=== PATIENT | female | born 1945 | race Caucasian/White ===

== ENCOUNTER 2019-06-20 08:22 | Inpatient (IN) ==
[2019-06-20] MEDS ORDERED: TYLENOL PO ONE (09:33)
[2019-06-20] MEDS ORDERED: NS 500 ML IV ONE (09:33)
[2019-06-20 10:02] LABS: ALLEN TEST NO; BE 2.9 mmoll (-3.0-3.0); BLOOD TYPE ARTERIAL; HCO3-(ACT) 27.2 mmoll (20.0-26.0); METHB 1.1 % (0.0-1.5); O2(CT) 17.3 mL/dL (15.0-23.0); O2HB 96.4 % (95.0-99.0); PCO2(98.6) 27 mmHg (35-45); PO2(98.6) 120 mmHg (60-100); SAMPLE BLOOD; SAO2 98.8 % (95.0-100.0); THB 12.6 g/dL (11.5-17.4)
[2019-06-20 10:03] LABS: MODALITY ROOM AIR; pH(98.6) 7.56 (7.35-7.45)
--- NOTE | 2019-06-20 10:15 | Diag Imaging Result Doc PS360 ---
EXAM: CT HEAD/C-SPINE W/O CONTRAST 06/20/2019 HISTORY: head injury/pain TECHNIQUE: This exam was performed using automated exposure control, adjustment of mA or kV according to patient size, and/or use of iterative reconstruction technique. COMMENT: There is no evidence of mass effect, bleed, or abnormal extra-axial fluid collection. The visualized paranasal sinuses are clear. There is hyperostosis frontalis interna. There are no acute calvarial abnormalities. Cervical spine: There is severe hypertrophic facet disease at C2-3, C3-4, C4-5 on the right and to a lesser extent at C2-3 and C3-4 on the left. There are large posterior osteophytes at C5-6 and C6-7 with disc space narrowing and vacuum phenomenon. No fracture or subluxation is present. The facets are aligned. IMPRESSION: No evidence of acute intracranial or cervical spine abnormality. Degenerative disc and facet changes in the cervical spine as described. Electronically signed by Prabhjot De La Rosa 06/20/2019 10:13 AM
--- NOTE | 2019-06-20 10:21 | Diag Imaging Result Doc PS360 ---
EXAM: XRAY PELVIS W/HIP 2-3VW RT HISTORY: fall TECHNIQUE: Three views COMPARISON: None. FINDINGS: No fracture. No dislocation. IMPRESSION: No acute bony injury. Electronically signed by Arron Crockett 06/20/2019 10:19 AM
--- NOTE | 2019-06-20 10:21 | Diag Imaging Result Doc PS360 ---
EXAM: CHEST-PORTABLE HISTORY: ams, falling TECHNIQUE: Single view COMPARISON: None. FINDINGS: The lungs are well expanded. No contusion. No pneumothorax. There is a left-sided granuloma. The heart is not enlarged. The vessels are not distended. There are no infiltrates. No effusion identified. IMPRESSION: Negative exam. Electronically signed by Arron Crockett 06/20/2019 10:18 AM
--- NOTE | 2019-06-20 10:23 | EKG Report ---
Test Performed on : 06/20/2019 09:44:06 AM Test Reason : AMS, falling Blood Pressure : / mmHG Vent. Rate : 077 BPM Atrial Rate : 077 BPM P-R Int : 140 ms QRS Dur : 078 ms QT Int : 422 ms P-R-T Axes : -13 008 027 degrees QTc Int : 477 ms Normal sinus rhythm. Normal ECG No previous ECGs available Unconfirmed Result
[2019-06-20 10:55] LABS: BASO# 0.02 X1000 (0.0-0.2); BASO% 0.2 % (0.0-0.8); EOS# 0.04 X1000 (0.0-0.7); EOS% 0.3 % (0.0-10.0); HEMATOCRIT 35.8 % (37.0-47.0); HEMOGLOBIN 12.3 g/dL (12.0-16.0); IMM GRAN# 0.02 X1000 (0.0-0.04); IMM GRAN% 0.2 % (0.0-0.5); LYMPH# 2.39 X1000 (1.2-3.4); LYMPH% 19.8 % (20.5-51.1); MCH 33.1 PG (27-31); MCHC 34.4 g/dL (33-37); MCV 96.2 FL (81-99); MONO# 1.12 X1000 (0.11-0.59); MONO% 9.3 % (1.7-9.3); MPV 11.8 FL (7.4-10.4); NEUT# 8.46 X1000 (1.4-6.5); NEUT% 70.2 % (42.2-75.2); PLT 270 X1000 (130-400); RBC 3.72 XMIL (4.2-5.4); RDW 12.6 % (11.5-14.5); WBC 12.05 X1000 (4.8-10.8)
[2019-06-20 11:06] LABS: INR 1.06; PTT 27.3 Seconds (22.3-41.8)
[2019-06-20 11:47] LABS: ALB/GLOB RATIO 2.3; ALBUMIN 4.2 g/dL (3.5-5.0); CALCIUM 10.1 mg/dL (8.8-10.2); CREATININE 1.8 mg/dL (0.5-0.9); MAGNESIUM 2.3 mg/dL (1.5-2.7); POTASSIUM 4.4 mmol/L (3.5-5.1); TOTAL BILIRUBIN 1.23 mg/dL (0.20-1.00)
[2019-06-20 14:05] LABS: URINE SOURCE CATH
[2019-06-20 14:10] LABS: BILIRUBIN URINE NEGATIVE (NEGATIVE); BLOOD URINE NEGATIVE (NEGATIVE); COLOR YELLOW; GLUCOSE URINE NEGATIVE (NEGATIVE); KETONE URINE NEGATIVE (NEGATIVE); LEUKOCYTES URINE NEGATIVE (NEGATIVE); NITRITE URINE NEGATIVE (NEGATIVE); PH URINE 6.5; PROTEIN URINE NEGATIVE (NEGATIVE); SP GRAVITY URINE 1.016; TURBIDITY URINE CLEAR (CLEAR); UROBILINOGEN URINE NORMAL (NORMAL)
[2019-06-20 14:12] LABS: UR EPITHELIAL CELLS <10 /HPF (<10); URINE BACTERIA 4+ /HPF; URINE RBC <10 /HPF (<10); URINE WBC <10 /HPF (<10)
[2019-06-20 14:19] LABS: UR AMPHETAMINES QUAL NONE DETECTED (NONE DETECT); UR BARBITUATES QUAL NONE DETECTED (NONE DETECT); UR BENZODIAZEPIN QUAL NONE DETECTED (NONE DETECT); UR CANNABINOIDS QUAL NONE DETECTED (NONE DETECT); UR COCAINE QUAL NONE DETECTED (NONE DETECT); UR METHADONE QUAL NONE DETECTED (NONE DETECT); UR OPIATES QUAL NONE DETECTED (NONE DETECT); UR OXYCODONE QUAL NONE DETECTED (NONE DETECT); UR PCP QUAL NONE DETECTED (NONE DETECT)
[2019-06-20] MEDS ORDERED: ROCEPHIN 1 GM in NS 50 ML IV ONE (14:38)
--- NOTE | 2019-06-20 14:59 | PROVIDER DOCUMENTATION ---
This chart was entered by Radha Plaza Scribe, acting as scribe for Santos Chapa MD. HPI-Neurological Disorder - General Chief Complaint: Fall Stated Complaint: fall Time Seen by Provider: 06/20/19 09:04 Source: patient, EMS Allergies/Adverse Reactions: Patient Allergies Allergy/AdvReac Type Severity Reaction Status Date / Time bacitracin [From Polysporin] Allergy Unknown Verified 06/20/19 10:07 codeine Allergy Unknown Verified 06/20/19 10:07 Latex, Natural Rubber Allergy Unknown Verified 06/20/19 10:07 metformin Allergy Unknown Verified 06/20/19 10:07 pioglitazone [From Actos] Allergy Unknown Verified 06/20/19 10:07 polymyxin B [From Polysporin] Allergy Unknown Verified 06/20/19 10:07 - History of Present Illness-Neuro Nature of Presenting Problem: 73 yof presents to the ed via ems post fall at approximately 0515 this am. pt was in the floor about 2 hrs prior to getting ems called. when ems aos pt had noted FSBG 41 and was given glucose and recheck of FSBG was 71. pt sts she has recently had medications changes in the last 2 weeks and has noted generalized weakness and falls since change. pt denies LOC with todays fall and on exam pt does have occipital head tenderness, rt hip tenderness and ecchymosis seen on rt hip and bilateral knees possible from previous falls. pt is a/o x3 and in no obvious distress on exam Headache Location: reports: occipital Severity: reports: moderate Onset/Duration: reports: this morning (0515am) Timing: reports: still present Context: reports: head injury, falling Character of Altered Mental Status: reports: unchanged from baseline Any recent trauma/injury?: reports: minor, to head Character of Deficits: reports: new weakness, decreased ability to walk (falling freq). denies: impaired speech New weakness or altered sensation location:: reports: general (diffuse) Cognitive Baseline: alert, oriented x3 Gait Baseline: walks without assistance Associated Symptoms: reports: trouble walking (freq falls in last 2 weeks), weakness. denies: headache, chest pain, neck/back pain, loss of consciousness, nausea, seizures, slurred speech Similar Symptoms Previously?: Yes Recently seen or treated by another doctor?: Yes (PMD in last 2 weeks for med changes) Review of Systems - Adult - REVIEW OF SYSTEMS - ADULT Constitutional: denies: chills, fever Eyes: denies: blurred vision, double vision Ears, Nose, Mouth & Throat: reports: no symptoms reported Cardiovascular: denies: chest pain, syncope Respiratory: denies: cough, shortness of breath, wheezing Gastrointestinal: denies: diarrhea, nausea, vomiting Genitourinary: reports: no symptoms reported Musculoskeletal: reports: see HPI, joint pain, muscle aches. denies: back pain, neck pain Integumentary: reports: no symptoms reported Neurological: reports: see HPI, loss of balance, tremors. denies: dizziness/vertigo, headache/migraines, slurred speech, syncope Psychiatric: reports: no symptoms reported Endocrine: reports: no symptoms reported Hematologic/Lymphatic: reports: no symptoms reported Allergic/Immunologic: reports: no symptoms reported All Other Systems: Reviewed and Negative Past History - Adult - PAST MEDICAL HISTORY-ADULT Review of Records: reports: Old Records Reviewed, Nursing Assessment Review, Medications Reviewed, Social history reviewed & non-contributory. Major Childhood Illnesses: reports: denies history Cardiovascular: reports: A-Fib, HTN Respiratory: reports: denies history Gastrointestinal: reports: denies history Obstetrical/Gynecological: reports: denies history Genitourinary: reports: denies history Musculoskeletal: reports: denies history Neurological: reports: denies history Psychiatric: reports: denies history Endocrine/Immune: reports: Diabetes Diabetes Type: Type 2 Other Conditions: reports: denies history - PRIOR SURGERIES/PROCEDURES Surgical/Procedure History: reports: reviewed, not pertinent - IMMUNIZATION STATUS Childhood Immunizations: See Nurse Assessment Flu Vaccine: See Nurse Assessment - FAMILY HISTORY Family History: reviewed, not pertinent - SOCIAL HISTORY Smoking: denies Substance Use: denies Living Situation: family Physical Exam- Neurological - Physical Exam-Neuro Initial Vital Signs Reviewed: Yes General Appearance: appears well, alert, no apparent distress Eye Exam: bilateral eye: normal inspection, PERRL, EOMI HENMT: moist mucous membranes Head Injury: tenderness (to occipital head). 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 negative: abrasion(s), laceration(s) Psych/Mental Status: normal mood/affect, normal thought content, normal thought process, oriented x 3 - Glascow Coma Scale Best Eye Response: (4) open spontaneously Best Verbal Response: (5) oriented Best Motor Response: (6) obeys commands Total Glascow Score: 15 Progress - PLAN OF CARE/RESULTS Progress/Plan/Lab Results: Vital Signs - 8 hr 06/20/19 08:38 06/20/19 13:41 Temperature 98.1 F Pulse Rate 77 71 Respiratory Rate 18 22 Blood Pressure 140/53 129/48 O2 Sat by Pulse Oximetry 99 95 Laboratory Results - last 24 hr 06/20/19 06/20/19 06/20/19 08:28 09:16 09:55 WBC RBC Hgb Hct MCV MCH MCHC RDW Std Deviation Plt Count MPV Immature Gran % (Auto) Neut % (Auto) Lymph % (Auto) [place] % (Auto) Eos % (Auto) Baso % (Auto) Immature Gran # (Auto) Neut # (Auto) Lymph # (Auto) [place] # (Auto) Eos # (Auto) Baso # (Auto) PT INR PTT (Actin FS) Specimen Type ARTERIAL Sample Site R BRACHIAL pH 7.56 H* pCO2 27 L pO2 120 H HCO3 27.2 H Base Excess 2.9 Oxyhemoglobin 96.4 ABG O2 Sat (Calculated) 17.3 ABG O2 Saturation 98.8 ABG Carboxyhemoglobin 1.20 ABG Methemoglobin 1.1 Telly Test NO A-a O2 Difference -4.0 Total Hemoglobin 12.6 Lactate 1.60 Liter Flow 0.0 Blood Gas Modality ROOM AIR FiO2 % 21.0 Sodium Potassium Chloride Carbon Dioxide Anion Gap BUN Creatinine Estimated GFR/1.73 m2 BUN/Creatinine Ratio Glucose POC Glucose 41 L 72 D Calculated Osmolality Calcium Magnesium Total Bilirubin AST ALT Alkaline Phosphatase Creatine Kinase Troponin T High Sens [id number]-Uvjgecyaaaq Pept Total Protein Albumin Globulin Albumin/Globulin Ratio Plasma Lactate Urine Source Urine Color Urine Turbidity Urine pH Ur Specific [place] Urine Protein Ur Glucose (Stick) Ur Ketones (Stick) Urine Blood Urine Nitrite Urine Bilirubin Urobilinogen Dipstick Urine Leukocytes Urine WBC (Auto) Urine RBC (Auto) U Epithel Cells (Auto) Urine Bacteria (Auto) Urine Opiates Screen Ur Oxycodone Screen Ur Methadone, Qual Ur Barbiturates Screen Ur Phencyclidine Scrn Ur Amphetamines Screen U Benzodiazepines Scrn Urine Cocaine Screen U Cannabinoids Screen Plasma/Serum Ethyl Alc Acetone Level 06/20/19 06/20/19 06/20/19 10:21 10:22 10:22 WBC RBC Hgb Hct MCV MCH MCHC RDW Std Deviation Plt Count MPV Immature Gran % (Auto) Neut % (Auto) Lymph % (Auto) [place] % (Auto) Eos % (Auto) Baso % (Auto) Immature Gran # (Auto) Neut # (Auto) Lymph # (Auto) [place] # (Auto) Eos # (Auto) Baso # (Auto) PT INR PTT (Actin FS) Specimen Type Sample Site pH pCO2 pO2 HCO3 Base Excess Oxyhemoglobin ABG O2 Sat (Calculated) ABG O2 Saturation ABG Carboxyhemoglobin ABG Methemoglobin Telly Test A-a O2 Difference Total Hemoglobin Lactate Liter Flow Blood Gas Modality FiO2 % Sodium 139 Potassium 4.4 Chloride 103 Carbon Dioxide 20 L Anion Gap 16 BUN 36 H Creatinine 1.8 H Estimated GFR/1.73 m2 27 BUN/Creatinine Ratio 20 Glucose 83 POC Glucose Calculated Osmolality 285 Calcium 10.1 Magnesium 2.3 Total Bilirubin 1.23 H AST 37 H ALT 30 Alkaline Phosphatase 51 Creatine Kinase 160 Troponin T High Sens Uzo-Y-Mbtbsfveacn Pept 295 Total Protein 6.0 L Albumin 4.2 Globulin 1.8 Albumin/Globulin Ratio 2.3 Plasma Lactate 2.9 H Urine Source Urine Color Urine Turbidity Urine pH Ur Specific [place] Urine Protein Ur Glucose (Stick) Ur Ketones (Stick) Urine Blood Urine Nitrite Urine Bilirubin Urobilinogen Dipstick Urine Leukocytes Urine WBC (Auto) Urine RBC (Auto) U Epithel Cells (Auto) Urine Bacteria (Auto) Urine Opiates Screen Ur Oxycodone Screen Ur Methadone, Qual Ur Barbiturates Screen Ur Phencyclidine Scrn Ur Amphetamines Screen U Benzodiazepines Scrn Urine Cocaine Screen U Cannabinoids Screen Plasma/Serum Ethyl Alc Acetone Level 06/20/19 06/20/19 06/20/19 10:22 10:22 10:22 WBC 12.05 H RBC 3.72 L Hgb 12.3 Hct 35.8 L MCV 96.2 MCH 33.1 H MCHC 34.4 RDW Std Deviation 12.6 Plt Count 270 MPV 11.8 H Immature Gran % (Auto) 0.2 Neut % (Auto) 70.2 Lymph % (Auto) 19.8 L [place] % (Auto) 9.3 Eos % (Auto) 0.3 Baso % (Auto) 0.2 Immature Gran # (Auto) 0.02 Neut # (Auto) 8.46 H Lymph # (Auto) 2.39 [place] # (Auto) 1.12 H Eos # (Auto) 0.04 Baso # (Auto) 0.02 PT INR PTT (Actin FS) Specimen Type Sample Site pH pCO2 pO2 HCO3 Base Excess Oxyhemoglobin ABG O2 Sat (Calculated) ABG O2 Saturation ABG Carboxyhemoglobin ABG Methemoglobin Telly Test A-a O2 Difference Total Hemoglobin Lactate Liter Flow Blood Gas Modality FiO2 % Sodium Potassium Chloride Carbon Dioxide Anion Gap BUN Creatinine Estimated GFR/1.73 m2 BUN/Creatinine Ratio Glucose POC Glucose Calculated Osmolality Calcium Magnesium Total Bilirubin AST ALT Alkaline Phosphatase Creatine Kinase Troponin T High Sens 25 H Rds-N-Bngetgvliwf Pept Total Protein Albumin Globulin Albumin/Globulin Ratio Plasma Lactate Urine Source Urine Color Urine Turbidity Urine pH Ur Specific [place] Urine Protein Ur Glucose (Stick) Ur Ketones (Stick) Urine Blood Urine Nitrite Urine Bilirubin Urobilinogen Dipstick Urine Leukocytes Urine WBC (Auto) Urine RBC (Auto) U Epithel Cells (Auto) Urine Bacteria (Auto) Urine Opiates Screen Ur Oxycodone Screen Ur Methadone, Qual Ur Barbiturates Screen Ur Phencyclidine Scrn Ur Amphetamines Screen U Benzodiazepines Scrn Urine Cocaine Screen U Cannabinoids Screen Plasma/Serum Ethyl Alc Acetone Level 06/20/19 06/20/19 06/20/19 10:22 10:22 11:26 WBC RBC Hgb Hct MCV MCH MCHC RDW Std Deviation Plt Count MPV Immature Gran % (Auto) Neut % (Auto) Lymph % (Auto) [place] % (Auto) Eos % (Auto) Baso % (Auto) Immature Gran # (Auto) Neut # (Auto) Lymph # (Auto) [place] # (Auto) Eos # (Auto) Baso # (Auto) PT 14.0 INR 1.06 PTT (Actin FS) 27.3 Specimen Type Sample Site pH pCO2 pO2 HCO3 Base Excess Oxyhemoglobin ABG O2 Sat (Calculated) ABG O2 Saturation ABG Carboxyhemoglobin ABG Methemoglobin Telly Test A-a O2 Difference Total Hemoglobin Lactate Liter Flow Blood Gas Modality FiO2 % Sodium Potassium Chloride Carbon Dioxide Anion Gap BUN Creatinine Estimated GFR/1.73 m2 BUN/Creatinine Ratio Glucose POC Glucose 157 H D Calculated Osmolality Calcium Magnesium Total Bilirubin AST ALT Alkaline Phosphatase Creatine Kinase Troponin T High Sens Eux-P-Gpofvivjtli Pept Total Protein Albumin Globulin Albumin/Globulin Ratio Plasma Lactate Urine Source Urine Color Urine Turbidity Urine pH Ur Specific [place] Urine Protein Ur Glucose (Stick) Ur Ketones (Stick) Urine Blood Urine Nitrite Urine Bilirubin Urobilinogen Dipstick Urine Leukocytes Urine WBC (Auto) Urine RBC (Auto) U Epithel Cells (Auto) Urine Bacteria (Auto) Urine Opiates Screen Ur Oxycodone Screen Ur Methadone, Qual Ur Barbiturates Screen Ur Phencyclidine Scrn Ur Amphetamines Screen U Benzodiazepines Scrn Urine Cocaine Screen U Cannabinoids Screen Plasma/Serum Ethyl Alc Acetone Level NEGATIVE 06/20/19 06/20/19 13:58 13:58 WBC RBC Hgb Hct MCV MCH MCHC RDW Std Deviation Plt Count MPV Immature Gran % (Auto) Neut % (Auto) Lymph % (Auto) [place] % (Auto) Eos % (Auto) Baso % (Auto) Immature Gran # (Auto) Neut # (Auto) Lymph # (Auto) [place] # (Auto) Eos # (Auto) Baso # (Auto) PT INR PTT (Actin FS) Specimen Type Sample Site pH pCO2 pO2 HCO3 Base Excess Oxyhemoglobin ABG O2 Sat (Calculated) ABG O2 Saturation ABG Carboxyhemoglobin ABG Methemoglobin Telly Test A-a O2 Difference Total Hemoglobin Lactate Liter Flow Blood Gas Modality FiO2 % Sodium Potassium Chloride Carbon Dioxide Anion Gap BUN Creatinine Estimated GFR/1.73 m2 BUN/Creatinine Ratio Glucose POC Glucose Calculated Osmolality Calcium Magnesium Total Bilirubin AST ALT Alkaline Phosphatase Creatine Kinase Troponin T High Sens Mjf-Y-Jizpxqxwwql Pept Total Protein Albumin Globulin Albumin/Globulin Ratio Plasma Lactate Urine Source CATH Urine Color YELLOW Urine Turbidity CLEAR Urine pH 6.5 Ur Specific [place] 1.016 Urine Protein NEGATIVE Ur Glucose (Stick) NEGATIVE Ur Ketones (Stick) NEGATIVE Urine Blood NEGATIVE Urine Nitrite NEGATIVE Urine Bilirubin NEGATIVE Urobilinogen Dipstick NORMAL Urine Leukocytes NEGATIVE Urine WBC (Auto) <10 Urine RBC (Auto) <10 U Epithel Cells (Auto) <10 Urine Bacteria (Auto) 4+ Urine Opiates Screen NONE DETECTED Ur Oxycodone Screen NONE DETECTED Ur Methadone, Qual NONE DETECTED Ur Barbiturates Screen NONE DETECTED Ur Phencyclidine Scrn NONE DETECTED Ur Amphetamines Screen NONE DETECTED U Benzodiazepines Scrn NONE DETECTED Urine Cocaine Screen NONE DETECTED U Cannabinoids Screen NONE DETECTED Plasma/Serum Ethyl Alc Acetone Level Orders Category Date Time Status Cardiac Monitoring DIRECTED Care 06/20/19 09:30 Active Finger Stick Blood Sugar (ED) DIRECTED Care 06/20/19 09:30 Completed Notify Provider of NEWS Score NOW Care 06/20/19 13:18 Active Oxygen Therapy- ED Nursing DIRECTED Care 06/20/19 09:30 Active Saline Loc NOW Care 06/20/19 09:30 Active Straight Catheterization ORDERED Care 06/20/19 12:03 Active Diabetic Diet Diet 06/20/19 09:21 Active Diabetic Diet Diet 06/20/19 09:21 Completed CHEST-PORTABLE [RAD] Stat Exams 06/20/19 09:[address] HEAD/C-SPINE W/O CONTRAST [CT] Stat Exams 06/20/19 09:31 Completed XRAY PELVIS W/HIP 2-3VW RT [RAD] Stat Exams 06/20/19 09:33 Completed ABG [RESP] Routine Lab 06/20/19 09:55 Completed ACETONE SERUM [CHEM] Stat Lab 06/20/19 10:22 Completed ALCOHOL BLOOD Stat Lab 06/20/19 10:22 Completed BLOOD CULTURE [BLDCUL] Stat Lab 06/20/19 13:18 Uncollected CBC WITH ELECTRONIC DIFF [HEME] Stat Lab 06/20/19 10:22 Completed CK PROFILE [SP CHEM] Stat Lab 06/20/19 10:22 Completed COMPREHENSIVE METABOLIC PANEL [CHEM] Stat Lab 06/20/19 10:22 Completed LACTATE, PLASMA [CHEM] Stat Lab 06/20/19 10:21 Completed LACTATE, PLASMA [CHEM] Stat Lab 06/20/19 13:21 Uncollected LACTATE, PLASMA [CHEM] Stat Lab 06/20/19 16:21 Uncollected MAGNESIUM [CHEM] Stat Lab 06/20/19 10:22 Completed PRO B-NATRIURETIC PEPTIDE Stat Lab 06/20/19 10:22 Completed PROTIME WITH INR [COAG] Stat Lab 06/20/19 10:22 Completed PTT [COAG] Stat Lab 06/20/19 10:22 Completed TROPONIN T HIGH SENSITIVITY Stat Lab 06/20/19 10:22 Completed UA NIMS W/REFLEX CULT [URINALYSIS] Stat Lab 06/20/19 13:58 Completed URINE CULTURE [RM] Routine Lab 06/20/19 13:58 Received URINE DRUG SCREEN Stat Lab 06/20/19 13:58 Completed 0.9% Sodium Chloride Inj [Ns] 500 ml Med 06/20/19 09:33 Discontinued IV 999 mls/hr Acetaminophen [Tylenol] Med 06/20/19 09:33 Discontinued 650 mg PO NOW ONE CefTRIAXONE [Rocephin] 1 gm Med 06/20/19 14:38 Active 0.9% Sodium Chloride Inj [Ns] 50 ml IV NOW Altered Mental Status Stat Oth 06/20/19 09:30 Ordered O2 Per Protocol Stat Oth 06/20/19 13:18 Completed EKG [EKG] Stat Ther 06/20/19 09:30 Draft Result Diagrams: 06/20/19 10:22 06/20/19 10:22 - REASSESSMENT Reassessment #1 Time Reassessed: 14:46 Status: improving (with IVF. Gait is still somewhat unstable, patient is uncomfortable with d/c home as she lives alone. Given IV rocephin for UTI.) - EKG 1 Time of EKG reading by physician:: 09:44 EKG Read and Signed by:: Santos Chapa EKG Interpretation (*Must complete 3 of following elements*): Normal Rate: 77 Rhythm: nsr [place]: normal QRS: normal PA Interval: normal ST Wave: normal - XRAY 1 XRAY: Right XRAY Study: Pelvis, Hip Impression: See EMR Report ( EXAM: XRAY PELVIS W/HIP 2-3VW RT HISTORY: fall TECHNIQUE: Three views COMPARISON: None. FINDINGS: No fracture. No dislocation. IMPRESSION: No acute bony injury. Electronically signed by Arron Crockett 06/20/2019 10:19 AM 06/20/19 1019 Interpreting Physician: Arron Crockett MD Dictated Date/Time: 06/20/19 1019 cc: Santos Chapa MD; Wilfrid Ventura MD) 2 XRAY: Bilateral XRAY Study: Chest Impression: See EMR Report (EXAM: CHEST-PORTABLE HISTORY: ams, falling TECHNIQUE: Single view COMPARISON: None. FINDINGS: The lungs are well expanded. No contusion. No pneumothorax. There is a left-sided granuloma. The heart is not enlarged. The vessels are not distended. There are no infiltrates. No effusion identified. IMPRESSION: Negative exam. Electronically signed by Arron Crockett 06/20/2019 10:18 AM 06/20/19 1018 Interpreting Physician: Arron Crockett MD Dictated Date/Time: 06/20/19 1018 cc: Santos Chapa MD; Wilfrid Ventura MD) - CT/MRI 1 CT Study: Cervical Spine, Head Impression: See EMR Report (EXAM: CT HEAD/C-SPINE W/O CONTRAST 06/20/2019 HISTORY: head injury/pain TECHNIQUE: This exam was performed using automated exposure control, adjustment of mA or kV according to patient size, and/or use of iterative reconstruction technique. COMMENT: There is no evidence of mass effect, bleed, or abnormal extra-axial fluid collection. The visualized paranasal sinuses are clear. There is hyperostosis frontalis interna. There are no acute calvarial abnormalities. Cervical spine: There is severe hypertrophic facet disease at C2-3, C3-4, C4-5 on the right and to a lesser extent at C2-3 and C3-4 on the left. There are large posterior osteophytes at C5-6 and C6-7 with disc space narrowing and vacuum phenomenon. No fracture or subluxation is present. The facets are aligned. IMPRESSION: No evidence of acute intracranial or cervical spine abnormality. Degenerative disc and facet changes in the cervical spine as described. Electronically signed by rPabhjot De La Rosa 06/20/2019 10:13 AM 06/20/19 1013 Interpreting Physician: Prabhjot De La Rosa MD Dictated Date/Time: 06/20/19 1010 cc: Santos Chapa MD; Wilfrid Ventura MD) - CONSULTS/PCP/HOSPITALIST Notification #1 *Consult/PCP/Hospitalist*: RIGOBERTO Benavides paged at 1445 Time Discussed: 14:56 (spoke with Sudha and returned call ) Reason/Comments: admit to [facility] Consult Disposition: Will see in ED, Admit Departure - Departure Date of Disposition Decision: 06/20/19 Time of Disposition Decision: 14:47 DIAGNOSIS: Pyelonephritis, acute, Dystonic tremor, Acute kidney injury (nontraumatic) Fall as cause of accidental injury at home as place of occurrence Qualifiers: Encounter type: initial encounter Qualified Code(s): W19.XXXA - Unspecified fall, initial encounter; Y92.009 - Unspecified place in unspecified non-[facility] residence as the place of occurrence of the external cause Minor head injury without loss of consciousness Qualifiers: Encounter type: initial encounter Qualified Code(s): S09.90XA - Unspecified injury of head, initial encounter Disposition: ADMITTED INPATIENT 09 Certified Medical Emergency: Emergent Condition: Fair Referrals and Follow-Ups: Wilfrid Ventura MD [Primary Care Provider] - - Critical Care Note This patient required my direct & personal management of CC.: No Attestation - Physician/ HAILY Attestation Patient care was provided by Advanced Practice Provider:: No The physician spent face to face time with patient:: Yes Advanced Practice Provider documentation review:: Supervising physician onsite and consulted in the evaluation and care of this patient. The physician did have a face to face encounter with the patient. This chart was documented by the indicated scribe, (Radah Plaza Scribe) and accurately reflects the services I performed and decisions made by me, Santos Chapa MD, as attested by the provider's signature.
[2019-06-20] MEDS ORDERED: ZOFRAN IV PRN (16:43)
[2019-06-20] MEDS ORDERED: TYLENOL PO PRN (16:43)
[2019-06-20] MEDS: HUMALOG SUBQ SCH (16:43)
[2019-06-20] MEDS ORDERED: D50W SYRINGE IV ONE (17:23)
[2019-06-20] MEDS ORDERED: PREVNAR 13 IM ONE (17:36)
[2019-06-20] MEDS: NS 1,000 ML IV SCH (17:36)
[2019-06-20] MEDS: D5 NS 1,000 ML IV SCH (17:43)
--- NOTE | 2019-06-20 18:49 | HISTORY AND PHYSICAL ---
PRIMARY CARE PHYSICIAN: Dr. Ventura. CHIEF COMPLAINT: Of a fall this a.m. and spent 2 hours trying to get up. When EMS arrived she had a blood sugar of 41. States she has also had multiple falls last week as well. HISTORY OF PRESENTING ILLNESS: This is a 73-year-old female who presents to [facility] via EMS after she sustained a fall around 5:15 a.m. this morning and spent about 2 hours trying to get EMS called. When EMS did arrive, she had a blood sugar of 41, was given glucose and recheck and the blood sugar came up to 71. She states that she had multiple falls last week as well, had a recent medication change in the past 2 weeks and has noted the generalized weakness and falls since that change, but is unable to remember the name of the medication. Workup showed a BUN of 36 and creatinine of 1.8. She does state that she has some underlying chronic kidney disease but does not know the stage and there is no previous creatinine to compare. Urinalysis was negative except for 4+ bacteria. Urine drug screen was negative. Acetone level was negative. We did a hip and pelvic x-ray that showed no acute bony injury, so she will be admitted for further evaluation and treatment. PAST MEDICAL HISTORY: Atrial fibrillation, hypertension, diabetes type 2, chronic kidney disease, unknown stage, and CHF. PAST SURGICAL HISTORY: Of an exploratory laparotomy. FAMILY HISTORY: Reviewed and noncontributory. SOCIAL HISTORY: She currently lives alone. Denies any tobacco, alcohol or illicit drug use. ALLERGIES: To bacitracin, polymyxin B, pioglitazone, metformin, natural rubber, latex and codeine. HOME MEDICATIONS: A current list will need to be obtained, reconciled, reviewed and restarted as appropriate. LABORATORY DATA: Showed a white blood cell count of 12.05, hemoglobin 12.3, hematocrit 35.8, platelets 270,000. PT and INR of 14 and 1.06. ABG showed a pH of 7.56, pCO2 27, PO2 120, bicarb 27.2. This was on room air. Sodium 139, potassium 4.4, chloride 103, CO2 20, BUN of 36, creatinine 1.8, glucose 83, magnesium of 2.3. Plasma lactate of 2.9. Urinalysis was negative except for 4+ bacteria. Urine drug screen was negative. Plasma serum alcohol was none detected. Acetone level was negative. Chest x-ray showed a negative exam. EKG showed normal sinus rhythm at 77. Head and cervical spine CT showed no evidence of acute intracranial or cervical spine abnormality. Degenerative disk and facet changes in the cervical spine as described. Hip and pelvic x-ray showed no acute bony injury. REVIEW OF SYSTEMS: She denied any fever, chills, blurred vision, dizziness. She was positive for some generalized weakness, multiple falls. Denied any chest pain, coughing, shortness of breath. Denied any abdominal pain, constipation, nausea, vomiting, diarrhea, burning or hurting with urination. No CVA tenderness. PHYSICAL EXAMINATION: On arrival she had a temperature of 98.1 degrees, pulse 77, respirations 18, blood pressure 140/53, saturating 99% on room air. GENERAL: This is a 73-year-old female who is lying in the bed. Answers questions appropriately. HEENT: Normocephalic, atraumatic. Normal ENT inspection. Oropharynx and nares are clear. EYES: Pupils are equal, round, reactive to light and accommodation. Extraocular movements are intact. NECK: Normal inspection, normal range of motion. LUNGS: Clear to auscultation bilaterally with equal lung expansion and chest wall movement. HEART: Regular rate and rhythm. No murmurs, rubs, or gallops. ABDOMEN: Soft, nontender, nondistended. Bowel sounds are present x4 quadrants. MUSCULOSKELETAL: She has 4/5 strength x4 extremities. NEUROLOGICAL: The cranial nerves 2-12 appear grossly intact. ASSESSMENT: 1. Multiple falls. 2. Hypoglycemia with a known diabetic type 2. 3. Acute kidney injury on chronic kidney disease, unknown stage. 4. Hypertension, history of. PLAN: She will be admitted for observation on the medical unit, placed on telemetry. We will place on normal saline at 50 mL an hour for some gentle hydration due to her having congestive heart failure history. We will do pattern blood sugars with sliding scale insulin, apply SCDs for DVT prophylaxis. We need to update and confirm all her home medications and restart those as appropriate. Place her on a diabetic diet and we will get physical therapy to evaluate and treat and we will recheck a CBC, BMP in the a.m. she will most likely need some home health with physical therapy component when she does return home, we will review her medicines to see if any of those are the new one that she may have gotten filled recently has been cause in the falls and generalized weakness. Further orders after seen by attending. Dictated by RIGOBERTO Morel for Nehemiah Enriquez MD Addendum: Patient seen and examined by myself. Agree with RIGOBERTO note. It reflects my assessment and plan. Patient is being admitted to hospital for multiple falls and MELIA so will start her on IV fluids. Will monitor patient closely and check daily BMP. cc: RIGOBERTO Morel MD Samuel Gillespie, MD MTDD
[2019-06-21] MEDS: HUMALOG SUBQ SCH ×4 (04:59→16:06)
[2019-06-21 05:21] LABS: BASO# 0.03 X1000 (0.0-0.2); BASO% 0.4 % (0.0-0.8); EOS# 0.19 X1000 (0.0-0.7); EOS% 2.3 % (0.0-10.0); HEMATOCRIT 36.6 % (37.0-47.0); HEMOGLOBIN 12.1 g/dL (12.0-16.0); LYMPH# 3.64 X1000 (1.2-3.4); LYMPH% 43.6 % (20.5-51.1); MCH 33.2 PG (27-31); MCHC 33.1 g/dL (33-37); MCV 100.5 FL (81-99); MONO# 0.85 X1000 (0.11-0.59); MONO% 10.2 % (1.7-9.3); MPV 11.5 FL (7.4-10.4); NEUT# 3.64 X1000 (1.4-6.5); NEUT% 43.5 % (42.2-75.2); PLT 199 X1000 (130-400); RBC 3.64 XMIL (4.2-5.4); RDW 12.9 % (11.5-14.5); WBC 8.35 X1000 (4.8-10.8)
[2019-06-21 05:51] LABS: CALCIUM 9.3 mg/dL (8.8-10.2); CREATININE 1.5 mg/dL (0.5-0.9); POTASSIUM 4.2 mmol/L (3.5-5.1)
[2019-06-21] MEDS: PRILOSEC PO SCH (09:43)
[2019-06-21] MEDS: LOPRESSOR PO SCH ×2 (09:43→21:44)
[2019-06-21] MEDS: LEXAPRO PO SCH (09:43)
[2019-06-21] MEDS ORDERED: VANCOMYCIN IV PER PHARMACY MISC SCH (10:00)
[2019-06-21] MEDS: D5 NS 1,000 ML IV SCH (10:19)
--- NOTE | 2019-06-21 14:11 | ECHO REPORT ---
ORDER DATE: 06/21/2019 INDICATIONS: CHF. FINDINGS: 1. The right atrium appears normal in size. 2. Mild tricuspid regurgitation. RV systolic pressure of 32. 3. Normal RV size and systolic function. 4. Trace pulmonic insufficiency. 5. Normal left atrial size with a volume index of 19. 6. No mitral valve prolapse. Mild mitral regurgitation. No mitral stenosis. 7. Normal LV size, end-diastolic dimension of 4.1 cm. Mild left ventricular hypertrophy with a posterior and interventricular septal wall thickness of 1.2 cm each. Normal LV systolic function. Estimated EF of 60% with normal wall motion. Measurements on this study suggest normal diastolic function. Normal ejection fraction of 60%. 8. The aortic valve opens well. It is trileaflet. No evidence of stenosis or insufficiency. 9. The aorta appears normal in visualized segments. 10. There is an anterior echo-free space suggestive of pericardial fat. 11. Normal IVC size. cc: Vin Sood MD
--- NOTE | 2019-06-21 15:45 | PROGRESS NOTE ---
DATE: 06/21/2019 INTERVAL HISTORY: Patient doing fairly well. Awake, alert. Denies chest pain, dyspnea. Did have fairly significant hypoglycemia overnight with glucose as low as 25. Improved this morning. Medication reviews and she is has not gotten any insulin since arrival here. Original blood cultures also 1 of 2 positive for gram-positive cocci. Suspect contamination but will treat until proven otherwise. No other acute events. REVIEW OF SYSTEMS: Twelve point review of systems negative except as per interval history. LABS: WBC 8.35, hemoglobin 12.1, hematocrit 36.6, platelets 199,000. Sodium 138, potassium 4.2, BUN 29, creatinine 1.5, glucose 25 to 236. Urinalysis unremarkable, UDS negative. IMAGING: Echocardiogram, mild pulmonary hypertension with pressure of 32, normal EF at 60. No significant valvular abnormalities. VITALS: T-max 98.2 degrees, pulse 65, respirations 20, blood pressure 136/40, O2 saturation 97% on room air . PHYSICAL EXAMINATION: General: No acute distress. Vitals as above. HEENT: Normocephalic, atraumatic. Moist mucous membranes. No cervical adenopathy. Cardiovascular: Regular rate and rhythm. No murmurs noted. Pulmonary: Clear to auscultation bilaterally. No wheezing, rales or rhonchi. Abdomen: Soft, nontender, nondistended. Bowel sounds positive. Extremities: Peripheral pulses intact. No clubbing or cyanosis. Trace pitting edema bilaterally. Neurologic: Cranial nerves grossly intact. No focal deficits identified . Psychiatric: Normal mood and affect. Awake, alert, oriented x3. ASSESSMENT AND PLAN: 1. Hypoglycemia. Discussed patient's home insulin regimen. She is on Toujeo and been taking a wandering sliding scale based on "what she feels like she needs." Has not received any insulin she has been here. Still had 1 episode of hypoglycemia last night of 25. Patient was minimally symptomatic at the time. Improved now. Continue to monitor glucoses closely. If she has further episodes of hypoglycemia then may need further workup as she is getting out of the range where her home insulin should still be on board. 2. Acute kidney injury, dehydration. Likely also contributing to fall before she came in. Baseline uncertain but creatinine and BUN up on admission creatinine 1.8. Appears to be improving with hydration, creatinine down to 1.5. Continue IV fluids and monitor. 3. Fall. No injury noted, likely due to hypoglycemia and dehydration. 4. Hypertension, blood pressure reasonable currently. Holding home Lasix because of dehydration. Tried to clarify whether patient is on lisinopril, losartan or both at home but patient is uncertain. Will try to clarify prior to discharge and only send her on one or the other likely losartan. Continue home metoprolol. 5. Hyperlipidemia. Continue home statin. 6. Gastroesophageal reflux disease. Continue PPI. 7. Questionable history of heart failure. Echocardiogram obtained which shows normal ejection fraction, some mild pulmonary hypertension but no clear heart failure identified. 8. Positive blood culture, likely contaminant. Patient's original blood cultures 1 of 2 positive for gram-positive cocci. Strongly suspect this will be another contaminant with Staph epi but will place on vancomycin and repeat blood cultures until it is proven that this is a contaminant. [facility] CENTERDameon
[2019-06-21] MEDS: NS 1,000 ML IV SCH (16:07)
[2019-06-21] MEDS ORDERED: VANCOMYCIN 1,650 MG in NS 250 ML IV ONE (18:00)
[2019-06-21] MEDS ORDERED: LIPITOR PO SCH (21:00)
[2019-06-22 05:41] LABS: BASO# 0.04 X1000 (0.0-0.2); BASO% 0.6 % (0.0-0.8); EOS# 0.25 X1000 (0.0-0.7); EOS% 3.8 % (0.0-10.0); HEMOGLOBIN 10.3 g/dL (12.0-16.0); LYMPH# 2.57 X1000 (1.2-3.4); LYMPH% 38.8 % (20.5-51.1); MCHC 33.2 g/dL (33-37); MCV 99.4 FL (81-99); MONO# 0.64 X1000 (0.11-0.59); MONO% 9.7 % (1.7-9.3); MPV 11.2 FL (7.4-10.4); NEUT# 3.13 X1000 (1.4-6.5); NEUT% 47.1 % (42.2-75.2); PLT 191 X1000 (130-400); RBC 3.12 XMIL (4.2-5.4); RDW 12.5 % (11.5-14.5); WBC 6.63 X1000 (4.8-10.8)
[2019-06-22 05:54] LABS: CREATININE 1.1 mg/dL (0.5-0.9); POTASSIUM 4.5 mmol/L (3.5-5.1)
[2019-06-22 06:03] LABS: HEMOGLOBIN A1C 4.4 % (4.8-6.0)
[2019-06-22] MEDS: HUMALOG SUBQ SCH ×2 (06:37→15:54)
[2019-06-22] MEDS: PRILOSEC PO SCH (07:00)
[2019-06-22] MEDS ORDERED: LEVAQUIN PO SCH (09:00)
[2019-06-22 09:13] VITALS: BP 128/36
[2019-06-22] MEDS: LEXAPRO PO SCH (10:24)
[2019-06-22] MEDS: LOPRESSOR PO SCH (10:24)
[2019-06-22] MEDS: NS 1,000 ML IV SCH (15:55)
[2019-06-23] MEDS ORDERED: VANCOMYCIN 1,400 MG in NS 250 ML IV SCH (06:00)
--- NOTE | 2019-06-23 08:47 | DISCHARGE SUMMARY ---
ADMISSION DATE: 06/20/2019 DISCHARGE DATE: 06/22/2019 PRIMARY CARE PHYSICIAN: Dr. Ventura. ADMISSION DIAGNOSES: 1. Multiple falls. 2. Hypoglycemia with a known diabetic type 2. 3. Acute kidney injury on chronic kidney disease, unknown stage. 4. Hypertension. DISCHARGE DIAGNOSES: 1. Hypoglycemia in a known diabetic type 2. 2. Acute kidney injury, dehydration, improved. 3. Fall. 4. Hypertension. 5. Hyperlipidemia. 6. Gastroesophageal reflux disease. SUMMARY OF FINDINGS: This is a 73-year-old female who presented to the ER after she sustained a fall around 5:15 a.m. on the morning of arrival and then spent approximately 2 hours trying to get EMS called to get a up. When EMS did arrive. She had a blood sugar of 41, was given glucose. Recheck of the blood sugar came up to 71. States that she has had multiple falls over the last week and had a recent medication change in the past 2 weeks but does not know the name of the medication. She also had a BUN of 36, creatinine of 1.8. She was ruled out for any hip or pelvic fracture with no bony injury noted. She was admitted, placed on gentle hydration, patterned blood sugars with sliding scale insulin. Blood sugars came back up to 200 down to as low only as 149. We did do am echocardiogram on 06/21/2019 that showed an ejection fraction of 60% with normal wall motion. Her urine culture did grow out an E coli and it was felt that she could safely be discharged home with some home health services. DISCHARGE MEDICATIONS: Will include Tylenol 650 mg p.o. q.6 hours p.r.n., atorvastatin 80 mg p.o. daily, vitamin D2 76271 units as directed, escitalopram 20 mg p.o. daily, flaxseed 1200 mg p.o. b.i.d., folic acid 1 mg p.o. b.i.d., Levaquin 250 mg p.o. daily, #4 with no refills, lisinopril 2.5 mg p.o. daily, metoprolol 50 mg p.o. b.i.d., multivitamin p.o. daily, omeprazole 40 mg p.o. daily, Ranexa 500 mg p.o. daily, ropinirole 5 mg p.o. b.i.d. FOLLOWUP: She will need to follow up with her primary care physician in the next 1 to 2 weeks and call his office for an appointment, and she will have home health services. TIME SPENT: A 35 minute discharge for Ailin Juárez. Dictated by RIGOBERTO Morel for Chris Butler MD cc: RIGOBERTO Morel MD Patient with no further hypoglycemia. she was taking a lot of insulin at home but sugar pretty well control with essentially no insulin here so we will hold it for now. if she does start back insulin I'd recommend doing it at a low and set dose. Patient was taking "however much I felt like I needed." kidney function recovered to baseline. echo with some diastolic failure but she was never significantly volume overloaded on this admission. MTDD
== END 2019-06-22 15:54 | disposition home health service (06) | DRG 638 ==
LOC: SUPCPDRO → EDIPHOLD 08:22 → ED 08:22 → OBSVTOIN 16:41 → SUATTDRO 16:41 → 1N 17:17
PROVIDERS: ATTEND Internal Medicine